=== PATIENT | female | born 1960 | race Two or more races ===

== ENCOUNTER → 2019-10-26 | Day surgery (SDC) | payer OTHER ==
[~2019-10-26] MED LIST: BUPIVACAINE 0.5 % PF 150 MG/30 ML VIAL ONE; FAMOTIDINE/PF INJ 20 MG/2 ML VIAL IV ONE; FENTANYL PF 250MCG/5ML AMPUL ONE; MIDAZOLAM HCL 2 MG/2ML VIAL ONE
== END | disposition home or self-care (01) ==
LOC: DS 08:19
PROVIDERS: ATTEND Orthopaedic Surgery
DX: G56.21 Lesion of ulnar nerve, right upper limb (principal); E11.9 Type 2 diabetes mellitus without complications; I10 Essential (primary) hypertension; E78.5 Hyperlipidemia, unspecified; K21.9 Gastro-esophageal reflux disease without esophagitis
CPT/HCPCS: 64718; 82962 ×2; A6402; J2250; J3010; J3490 ×2; J0690; J2405; J2704; J2765